=== PATIENT | male | born 1975 | race Caucasian/White ===

== ENCOUNTER 2020-02-23 17:16 | Emergency (ER) | payer OTHER ==
[2020-02-23] MEDS ORDERED: IBUPROFEN 600 MG TABLET PO STA (18:01)
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
[2020-02-23 18:22] VITALS: BP 137/81
--- NOTE | 2020-02-23 19:05 | XRAY Report ---
PROCEDURE: Ankle 3 View RT INDICATIONS: inversion injury; r/o fx TECHNIQUE: 3 views of the ankle were acquired. COMPARISON: None FINDINGS: Bones: No fractures or dislocations. Ankle mortise is normally aligned. No suspicious bony lesions . Soft tissues: No tibiotalar joint effusion. Achilles tendon appears normal. IMPRESSION: Soft tissue swelling over the lateral malleolus but no fracture or traumatic subluxation is seen. Reviewed by: Misael Bal MD on 02/23/2020 7:04 PM PDT Approved by: Misael Bal MD on 02/23/2020 7:04 PM PDT Station ID: [id number]
== END 2020-02-23 19:20 | disposition home or self-care (01) ==
LOC: ED 17:16
DX: S93.411A Sprain of calcaneofibular ligament of right ankle, initial encounter (principal); X50.1XXA Overexertion from prolonged static or awkward postures, initial encounter; Y93.89 Activity, other specified
CPT/HCPCS: 73610; 99283; A9270